=== PATIENT | female | born 1935 | race Asian ===

== ENCOUNTER → 2017-07-20 | Outpatient (CLI) | payer MEDICARE, OTHER ==
[2017-07-20] MEDS: IODIXANOL LOCM 100 ML BTL (09:57)
[2017-07-20] MEDS: SOD CHLORIDE 0.9% 100 ML (09:57)
== END | disposition home or self-care (01) ==
LOC: C/S 08:49
DX: I65.29 Occlusion and stenosis of unspecified carotid artery (principal)
CPT/HCPCS: 70498

== ENCOUNTER 2017-07-23 21:53 | Emergency (ER) | payer SELFPAY, MEDICARE, OTHER | END 2017-07-24 00:56 | disposition left against medical advice (07) | LOC: E/R 21:53 | DX: Z53.21 Procedure and treatment not carried out due to patient leaving prior to being seen by health care provider (principal) ==

== ENCOUNTER 2018-02-11 10:54 | Emergency (ER) | payer MEDICARE, OTHER ==
[2018-02-11] MEDS: HYDROmorphONE 0.5 MG/0.5 ML SYG IM (12:35)
[2018-02-11] MEDS: ONDANSETRON (ODT) 4 MG TAB ODT (12:35)
== END 2018-02-11 13:18 | disposition home or self-care (01) ==
LOC: FTE 13:18
DX: M54.5 Low back pain (principal); G89.29 Other chronic pain; N18.6 End stage renal disease; E11.22 Type 2 diabetes mellitus with diabetic chronic kidney disease; Z79.4 Long term (current) use of insulin; Z79.82 Long term (current) use of aspirin; Z99.2 Dependence on renal dialysis
CPT/HCPCS: 72100; 96372; 99284-25